=== PATIENT | female | born 1955 | race Caucasian/White ===

== ENCOUNTER → 2017-04-29 | Outpatient (CLI) | payer MEDICARE ==
--- NOTE | ~2017-04-29 | MY29 ---
[facility] A Service of [facility] RADIOLOGY TEXT RESULTS PATIENT: AUREA STRAUSS LOCATION: [facility] : 59 UNIT #: [id number] AGE: [address]: Rosamaria Sawyer APRN SEX: F ORDER DR: [id number] [facility] [address] [place]. [place], [place] [address] [id number] O MR#: [id number] Acc #: [id number] NAME: AUREA STRAUSS. : 1955 SEX: F STUDY DATE/TIME: 04/29/2017 10:25 UNIT: [facility] ROOM: STUDY DESCRIPTION: MY [place] SCREENING W/ CAD BILAT Attending Physician: Rosamaria Sawyer A.P.R.N. Referring Physician: Rosamaria Sawyer A.P.R.N. Ordering Physician: Rosamaria Sawyer A.P.R.N. Primary Care Physician: Rosamaria Sawyer A.P.R.N. MEDICAL IMAGING REPORT This report is preliminary unless electronic signature is present EXAM Digital screening mammogram, 04/29/2017, [facility]. HISTORY 61-year-old woman; no risk elevation. Annual screening. COMPARISON None available FINDINGS Digital imaging of each breast was completed utilizing a two-view examination of each breast in craniocaudal and mediolateral-oblique projections. Review and interpretation of digital mammograms include a second review in conjunction with FDA-approved CAD device. There is a normal parenchymal presentation bilaterally consistent with the patient's age. There are no breast masses imaged and no parenchymal asymmetry is visualized. There are no suspicious microcalcifications and I see no focal architectural disturbance. NOTE: Breast parenchyma is fatty replaced IMPRESSION Negative screening digital mammogram. One-year followup recommended. Patients over the age of 40 are entered into a reminder system with target due date for the next mammogram. A result letter will also be sent to the patient. BIRADS: 1 Negative Dictated by... [facility] A Service [facility] RADIOLOGY TEXT RESULTS PATIENT: AUREA STRAUSS LOCATION: [facility] : 59 UNIT #: [id number] AGE: [address]: Rosamaria Sawyer APRN SEX: F ORDER DR: Kade Nick M.D. THIS IS AN ELECTRONICALLY VERIFIED REPORT Kade Nick M.D. at 04/30/2017 7:04 AM Flash TD: 04/29/2017 15:55 JOB #: [id number] MEDICAL IMAGING REPORT Page 1 of 1 COPY
== END | disposition home or self-care (01) ==
LOC: CWCC 09:59
DX: Z12.31 Encounter for screening mammogram for malignant neoplasm of breast (principal)
CPT/HCPCS: G0202